=== PATIENT | female | born 1980 | race Caucasian/White ===

== ENCOUNTER 2016-07-17 13:19 | Emergency (ER) | payer MEDICAID ==
[~2016-07-17] VITALS: Ht 160 cm; Wt 57.6 kg
[2016-07-17 13:20] VITALS: BP_SYST 138
[2016-07-17] MEDS ORDERED: DIPH-TET-PERTUS Vaccine 0.5 ML VIAL (ADACEL) I.M. ONE (14:30)
[2016-07-17 14:38] LABS: CALCIUM 10.1 mg/dL (8.4-11.0); CREATININE 1.16 mg/dL (0.55-1.30); POTASSIUM 4.4 mmol/L (3.5-5.1)
[2016-07-17 14:42] LABS: BILIRUBIN,URINE NEGATIVE (NEGATIVE); BLOOD, URINE NEGATIVE (NEGATIVE); CLARITY/URINE CLEAR (CLEAR); COLOR,URINE YELLOW (YELLOW); GLUCOSE,URINE NEGATIVE (NEGATIVE); KETONES,URINE NEGATIVE (NEGATIVE); LEUKOCYTE ESTERASE ,URINE NEGATIVE (NEGATIVE); NITRITE, URINE NEGATIVE (NEGATIVE); PH,URINE 5.5 (5.0-8.0); PROTEIN URINE NEGATIVE (NEGATIVE); UROBILINOGEN,URINE 0.2 (0.2-1.0)
[2016-07-17 14:43] LABS: ALBUMIN 4.8 g/dL (3.4-4.8); TOTAL BILIRUBIN 0.6 mg/dL (0.0-1.0); TOTAL PROTEIN, SERUM 8.7 g/dL (6.4-8.3)
[2016-07-17 14:45] LABS: BASOPHILS # (AUTO) 0.1 K/uL (0.0-0.2); BASOPHILS % (AUTO) 1.1 % (0.0-2.0); EOSINOPHILS # (AUTO) 0.2 K/uL (0.0-0.4); EOSINOPHILS % (AUTO) 2.2 % (0.0-4.0); HEMATOCRIT 46.3 % (36-48); HEMOGLOBIN 15.2 g/dL (12.0-16.0); LYMPHOCYTES # (AUTO) 1.2 K/uL (1.0-5.5); LYMPHOCYTES % (AUTO) 17.7 % (20.5-51.5); MEAN CORPUSCULAR HEMOGLOBIN 30 pg (27-31); MEAN CORPUSCULAR HGB CONC 33 % (32-36); MEAN CORPUSCULAR VOLUME 90 fL (79.0-98.0); MONOCYTES # (AUTO) 0.5 K/uL (0.0-1.0); MONOCYTES % (AUTO) 7.4 % (1.7-9.3); NEUTROPHILS % (AUTO) 71.6 % (40.0-70.0); PLATELET COUNT (AUTO) 277 K/uL (130-430); RED BLOOD CELL COUNT(AUTO) 5.13 MIL/uL (4.2-6.2); RED CELL DISTRIBUTION WIDTH 12.4 % (9.0-15.0)
[2016-07-17 15:08] LABS: ERYTHROCYTE SEDIMENTATION RATE 7 MM/HR (0-20)
[2016-07-17] MEDS ORDERED: BACITRACIN 1 GM OINT TP ONE (15:55)
[2016-07-17] MEDS ORDERED: BACITRACIN ZINC 15 GM TOPICAL OINTMENT TP SCH (16:00)
[2016-07-17 18:02] VITALS: BP_SYST 133
== END 2016-07-17 18:02 | disposition home or self-care (01) ==
LOC: SED 13:19
DX: S76.011A Strain of muscle, fascia and tendon of right hip, initial encounter (principal); S80.211A Abrasion, right knee, initial encounter; S60.511A Abrasion of right hand, initial encounter; J45.909 Unspecified asthma, uncomplicated; W19.XXXA Unspecified fall, initial encounter; Y93.02 Activity, running; Y92.89 Other specified places as the place of occurrence of the external cause; Y99.8 Other external cause status
CPT/HCPCS: 36415; 73510-TC; 73564; 80053; 81003; 81025; 85025; 85651-TC; 90715; 93005; 99285

== ENCOUNTER 2022-10-18 08:28 | Emergency (ER) | payer MEDICAID ==
[~2022-10-18] VITALS: Ht 160 cm; Wt 65.8 kg
[2022-10-18 08:39] VITALS: BP_SYST 117; PULSE 74; RESP 19; TEMP 98.2; O2SAT 99
[2022-10-18] MEDS ORDERED: KETOROLAC TROMETHAMINE 60 MG/2 ML VIAL IM ONE (08:45)
[2022-10-18] MEDS ORDERED: IBUP-1969 PO (09:19)
[2022-10-18] MEDS ORDERED: HYDR-3927 PO (09:19)
== END 2022-10-18 10:08 | disposition home or self-care (01) ==
LOC: SED 08:28
DX: S92.511A Displaced fracture of proximal phalanx of right lesser toe(s), initial encounter for closed fracture (principal); J45.909 Unspecified asthma, uncomplicated; Z79.899 Other long term (current) drug therapy; W22.09XA Striking against other stationary object, initial encounter; Y93.89 Activity, other specified; Y92.89 Other specified places as the place of occurrence of the external cause; Y99.8 Other external cause status
CPT/HCPCS: 99283; 73660; 96372; J1885